=== PATIENT | female | born 2000 ===

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

== ENCOUNTER 2020-05-09 15:48 | Emergency (ER) | payer BC, OTHER ==
--- NOTE | 2020-05-09 16:01 | ED Physician Documentation ---
PD HPI LOWER EXT INJURY - Stated complaint Stated Complaint: RT FOOT INJ - Chief complaint Chief Complaint: Trauma Ext - History obtained from History obtained from: Patient - History of Present Illness PD HPI LOW EXT INJURY LOCATION: Right, Foot (dorsum mid foot) Type of injury: Blunt / blow (accidentally dropped exercise weight on top of foot.) Where injury occurred: Home Timing - onset: Today Timing - details: Abrupt onset Associated symptoms: Swelling. No: Weakness, Numbness Similar symptoms before: Has not had sx before Review of Systems Constitutional: denies: Fever Nose: denies: Rhinorrhea / runny nose, Congestion Throat: denies: Sore throat Respiratory: denies: Cough Skin: reports: Abrasion (s). denies: Laceration (s) PD PAST MEDICAL HISTORY - Past Medical History Past Medical History: No - Present Medications Home Medications: Ambulatory Orders Medication Instructions Recorded Confirmed Escitalopram [Lexapro] 10 mg PO DAILY 05/09/20 05/09/20 HYDROcod/ACETAM 5/325 [[place] 5/325] 1 ea PO Q6H PRN #10 tablet 05/09/20 Levonorgestrel 20 Mcg/24H [Mirena] 1 each IY ONCE 05/09/20 05/09/20 - Allergies Allergies/Adverse Reactions: Allergies Allergy/AdvReac Type Severity Reaction Status Date / Time No Known Drug Allergies Allergy Verified 05/09/20 15:50 PD ED PE NORMAL - Vitals Vital signs reviewed: Yes - General General: Alert and oriented X 3, Well developed/nourished, Other (appears in pain due to foot. ) - Derm Derm: Normal color, Warm and dry - Extremities Extremities: Other (dorsum right foot centrally with local mild abrasion, moderate focal swelling, and tenderness. toes and ankle not tender. ) - Neuro Neuro: No motor deficit, No sensory deficit Results - Vitals Vitals: Vital Signs - 24 hr 05/09/20 05/09/20 15:51 17:12 Temperature 37.4 C 37.1 C Heart Rate 70 71 Respiratory 20 16 Rate Blood Pressure 149/93 H 136/65 H O2 Saturation 100 100 Oxygen O2 Source Room air - Rads (name of study) right foot Radiology: Prelim report reviewed (no fractures), See rad report PD MEDICAL DECISION MAKING - ED course Complexity details: reviewed results, considered differential, d/w patient Departure - Departure Disposition: 01 Home, Self Care Clinical Impression: Contusion, foot Qualifiers: Encounter type: initial encounter Laterality: right Qualified Code(s): S90.31XA - Contusion of right foot, initial encounter Condition: Stable Record reviewed to determine appropriate education?: Yes Instructions: ED Contusion Foot Follow-Up: Elvi Henry PA [Primary Care Provider] - Prescriptions: HYDROcod/ACETAM 5/325 [[place] 5/325] 1 ea PO Q6H PRN #10 tablet PRN Reason: Pain Comments: No fracture seen on your x-ray. You will still have quite a bit of pain from the bruising and swelling within the foot. The swelling should go down and pain improve over the next 2 to 3 days. Meanwhile ice elevate and rest your foot often. Crutches as needed for nonweightbearing and comfort. Progress weightbearing as activity as tolerated over the next several days to week. Anti-inflammatory such as ibuprofen 3 times a day for the next several days to a week. Add Tylenol or hydrocodone if needed for worse pain. Recheck if not improved well over the next several days and resolved within a week. Discharge Date/Time: 05/09/20 17:17
[2020-05-09] MEDS ORDERED: HYDROcod/ACETAM 5/325 MG TABLET PO STA (16:52)
[2020-05-09 17:13] VITALS: BP 136/65
--- NOTE | 2020-05-09 17:29 | XRAY Report ---
PROCEDURE: Foot 3 View RT INDICATIONS: injury TECHNIQUE: 3 views of the foot were acquired. COMPARISON: None. FINDINGS: Bones: No fractures or dislocations. No suspicious bony lesions. Soft tissues: No tibiotalar joint effusion. Achilles tendon appears normal. IMPRESSION: No acute osseous abnormality. Reviewed by: Eusebio Zepeda MD on 05/09/2020 4:27 PM [facility] [[email or web address]] Approved by: Eusebio Zepeda MD on 05/09/2020 4:27 PM [facility] [[email or web address]] Station ID: [id number]
== END 2020-05-09 17:17 | disposition home or self-care (01) ==
LOC: ED 15:48
DX: S90.31XA Contusion of right foot, initial encounter (principal); W22.8XXA Striking against or struck by other objects, initial encounter; Y93.B9 Activity, other involving muscle strengthening exercises; Y92.39 Other specified sports and athletic area as the place of occurrence of the external cause
CPT/HCPCS: 73630; 99283; A9270

== ENCOUNTER 2020-05-29 17:56 | Outpatient (CLI) | payer BC ==
--- NOTE | 2020-05-29 08:53 | XRAY Report ---
PROCEDURE: Clavicle RT INDICATIONS: NONDISPLACED FX OF STERNAL END OF R CLAVICLE TECHNIQUE: 2 views of the clavicle were acquired. COMPARISON: None. FINDINGS: Bones: Acute-appearing fracture involving mid shaft of right clavicle is seen with up to 1.2 cm depre ssion of distal clavicular shaft and up to 1.6 cm overlapping at fracture site. Acromioclavicular edgardo int space is preserved. No suspicious bony lesions. Soft tissues: No suspicious soft tissue calcifications. IMPRESSION: Acute depressed mid clavicular shaft fracture as above. Reviewed by: Colby Olivera MD on 05/29/2020 8:52 AM PST Approved by: Colby Olivera MD on 05/29/2020 8:52 AM PST Station ID: [id number]
== END 2020-05-29 23:59 | disposition home or self-care (01) ==
LOC: DI.N 17:56
PROVIDERS: ATTEND Orthopaedic Surgery
DX: S42.024A Nondisplaced fracture of shaft of right clavicle, initial encounter for closed fracture (principal)

== ENCOUNTER 2020-07-03 07:00 | Outpatient (CLI) | payer BC ==
--- NOTE | 2020-07-06 16:34 | XRAY Report ---
PROCEDURE: Clavicle RT INDICATIONS: DISPLACED FX OF SHAFT OF R CLAVICLE TECHNIQUE: 2 views of the clavicle were acquired. COMPARISON: Right clavicle x-ray 05/29/2020 FINDINGS: Bones: Stable appearance of mid right clavicular fracture. There is an approximate 2.0 cm overlap of proximal and distal fragments. There is slight superior angulation of the proximal fragment. Soft tissues: No suspicious soft tissue calcifications. IMPRESSION: Mildly displaced mid right clavicular fracture. Reviewed by: Ruthie Kelly MD on 07/06/2020 4:33 PM PST Approved by: Ruthie Kelly MD on 07/06/2020 4:33 PM PST Station ID: [id number]
== END 2020-07-03 23:59 | disposition home or self-care (01) ==
LOC: DI.N 07:00
PROVIDERS: ATTEND Orthopaedic Surgery
DX: S42.021A Displaced fracture of shaft of right clavicle, initial encounter for closed fracture (principal)

== ENCOUNTER 2020-09-04 07:21 | Outpatient (CLI) | payer BC ==
--- NOTE | 2020-09-04 16:11 | XRAY Report ---
PROCEDURE: Clavicle RT INDICATIONS: RT CLAVICLE FRACTURE TECHNIQUE: 2 views of the clavicle were acquired. COMPARISON: 07/03/2020.. FINDINGS: Bones: Fracture of right clavicle midshaft is redemonstrated. Distal fracture fragment is proximally and inferiorly displaced. Soft tissues: No suspicious soft tissue calcifications. IMPRESSION: Displaced right clavicle midshaft fracture stable in alignment compared to 07/03/2020. Reviewed by: Gia Mcdonough MD, PhD on 09/04/2020 4:10 PM PDT Approved by: Gia Mcdonough MD, PhD on 09/04/2020 4:10 PM PDT Station ID: [id number]
== END 2020-09-04 23:59 | disposition home or self-care (01) ==
LOC: DI.N 07:21
PROVIDERS: ATTEND Orthopaedic Surgery
DX: S42.021A Displaced fracture of shaft of right clavicle, initial encounter for closed fracture (principal)